=== PATIENT | female | born 1990 | race African-American/Black ===

== ENCOUNTER 2020-11-10 21:19 | Emergency (ER) | payer MEDICARE, MEDICAID ==
[~2020-11-10] VITALS: Ht 170.2 cm; Wt 62.0 kg
[2020-11-10] MEDS ORDERED: ACETAMINOPHEN 325MG TABLET PO PRN (23:15)
[2020-11-11 00:39] LABS: BASOPHILS % 0.4 % (0.0-2.0); EOSINOPHILS % 0.7 % (0.0-5.0); HEMATOCRIT. 36.7 % (36.0-48.0); HEMOGLOBIN. 12.5 g/dL (12.0-16.0); LYMPHOCYTES % 19.9 % (20.0-50.0); MEAN PLATELET VOLUME 6.7 fl (7.4-10.4); MONOCYTES % 4.5 % (2.0-8.0); NEUTROPHILS % 74.5 % (40.0-76.0); PLATELET 395 x1000/uL (130-400); RED BLOOD CELL COUNT 4.03 mill/uL (4.2-5.4); RED CELL DISTRIBUTION WIDTH 14.2 % (11.6-14.6)
[2020-11-11 00:45] LABS: CHLORIDE 107 mEq/L (98-107)
[2020-11-11 00:56] LABS: B-HCG QUANTITATIVE 7 mIU/mL (<3)
[2020-11-11 02:00] VITALS: BP 139/93
== END 2020-11-11 02:41 | disposition home or self-care (01) ==
LOC: ER 21:19
DX: O46.91 Antepartum hemorrhage, unspecified, first trimester (principal); F31.9 Bipolar disorder, unspecified; F20.9 Schizophrenia, unspecified; Z3A.01 Less than 8 weeks gestation of pregnancy
CPT/HCPCS: 36415; 76830; 76856; 80053; 81025; 84702; 85025; 86850; 86900; 99284